=== PATIENT | female | born 1995 | race Caucasian/White ===

== ENCOUNTER 2024-07-21 13:45 | Emergency (ER) | payer SELFPAY ==
[~2024-07-21] VITALS: Ht 162.6 cm; Wt 54.0 kg
[2024-07-21 13:47] VITALS: TEMP 36.7; O2SAT 100
[2024-07-21] MEDS: ACETAMINOPHEN 325MG TABLET PO STA (14:22)
[2024-07-21] MEDS ORDERED: CYCL10TA21 MT (15:35)
[2024-07-21] MEDS ORDERED: IBUP-2029 MT (15:35)
[2024-07-21 15:53] VITALS: BP 123/81; PULSE 66; RESP 14; O2SAT 100
== END 2024-07-21 15:56 | disposition home or self-care (01) ==
LOC: ER 13:45
DX: S09.8XXA Other specified injuries of head, initial encounter (principal); S10.83XA Contusion of other specified part of neck, initial encounter; M79.18 Myalgia, other site; V89.2XXA Person injured in unspecified motor-vehicle accident, traffic, initial encounter; Y93.89 Activity, other specified; Y92.410 Unspecified street and highway as the place of occurrence of the external cause; Y99.8 Other external cause status
CPT/HCPCS: 71045; 72040; 81025; 99284